=== PATIENT | female | born 1985 | race Caucasian/White ===

== ENCOUNTER → 2023-12-10 10:17 | Outpatient (REF) | payer OTHER, SELFPAY | LOC: HWRAD 10:17 | PROVIDERS: ATTENDING PHYSICIAN Nurse Practitioner Family; FAMILY PHYSICIAN Family Medicine | DX: Z34.90 Encounter for supervision of normal pregnancy, unspecified, unspecified trimester (principal) | CPT/HCPCS: 76801 ==

== ENCOUNTER → 2024-01-05 14:23 | Outpatient (REF) | payer OTHER, SELFPAY | LOC: PNTC 14:23 | PROVIDERS: ATTENDING PHYSICIAN Obstetrics & Gynecology | DX: O09.529 Supervision of elderly multigravida, unspecified trimester (principal) | CPT/HCPCS: 76805 ==

== ENCOUNTER → 2024-02-02 09:34 | Outpatient (REF) | payer OTHER, SELFPAY | LOC: PNTC 09:34 | PROVIDERS: ATTENDING PHYSICIAN Obstetrics & Gynecology | DX: O09.529 Supervision of elderly multigravida, unspecified trimester (principal) | CPT/HCPCS: 76811 ==

== ENCOUNTER → 2024-03-01 16:21 | Outpatient (REF) | payer OTHER, SELFPAY | LOC: PNTC 16:21 | PROVIDERS: ATTENDING PHYSICIAN Obstetrics & Gynecology | DX: O09.529 Supervision of elderly multigravida, unspecified trimester (principal); O99.210 Obesity complicating pregnancy, unspecified trimester | CPT/HCPCS: 76816 ==

== ENCOUNTER → 2024-03-22 15:58 | Outpatient (REF) | payer OTHER, SELFPAY | LOC: PNTC 15:58 | PROVIDERS: ATTENDING PHYSICIAN Obstetrics & Gynecology | DX: O09.529 Supervision of elderly multigravida, unspecified trimester (principal); O99.210 Obesity complicating pregnancy, unspecified trimester | CPT/HCPCS: 76816 ==

== ENCOUNTER 2024-04-12 11:31 | Observation (INO) | payer OTHER, SELFPAY ==
[2024-04-12 11:42] VITALS: BP 102/67; BMI 33.1
[2024-04-12] MEDS: TYLENOL 1000 MG PO (12:19)
== END 2024-04-12 13:55 | disposition home or self-care (01) ==
LOC: LDRP 11:31
PROVIDERS: ADMITTING PHYSICIAN Obstetrics & Gynecology
DX: R51.9 Headache, unspecified (principal); R04.0 Epistaxis; O24.410 Gestational diabetes mellitus in pregnancy, diet controlled; Z3A.30 30 weeks gestation of pregnancy; O09.523 Supervision of elderly multigravida, third trimester; O99.283 Endocrine, nutritional and metabolic diseases complicating pregnancy, third trimester; E03.9 Hypothyroidism, unspecified; Z79.890 Hormone replacement therapy; Z28.310 Unvaccinated for COVID-19
CPT/HCPCS: 59025; G0378

== ENCOUNTER 2024-04-13 13:20 | Emergency (ER) | payer OTHER, SELFPAY ==
[2024-04-13 13:21] VITALS: BP 105/81
--- NOTE | 2024-04-13 13:48 | ED.GENMED ---
History of Present Illness
<Anuja Oliver PA-C - Last Filed: 04/13/24 18:30>
General
Chief Complaint: Nose Bleed
Source: patient
Exam Limitations: none
Time Seen by Provider: 04/13/24 13:33
Nursing documentation reviewed up to this point in time: agreed with
Travel History
Have you had any contact with someone who has COVID-19?: No
Do you have any symptoms of coronavirus? Fever > 100 degrees, chills, cough, shortness of breath, sore throat, loss of taste or smell, muscle aches, or headache?: No
History of Present Illness
History of Present Illness:
39-year-old female with a past medical history of gestational diabetes presenting emergency department today with concerns of nosebleeds. Patient is currently 3 weeks . Patient states that 3 days ago, she had an episode of nose bleeding at
night. She bled from both nares bilaterally. Patient states that this lasted a few minutes and quickly resolved. Patient states that she called her OB who evaluated her and advised to call should she have any other episodes. Patient had another
episode and so she called her OB and they sent her in and did a further workup, and checked heart tones but did not do lab work at this time. Patient yet another episode in her OB with her to report to emergency department to get blood work done.
Patient denies any history of hypertension during . Patient denies any headaches currently, any dizziness, any bleeding from any other sites, any hallucinations, any lightheadedness.
Past History
<Anuja Oliver PA-C - Last Filed: 04/13/24 18:30>
Past History
ED Past Medical History: None
ED Past Surgical History: None
Social History
Tobacco: Non-smoker
Alcohol: None
Drug: None
Personal: Single
Living: with family
Employment: Employed
Family History
Family History: Other (non contributory)
Review of Systems
<Anuja Oliver PA-C - Last Filed: 04/13/24 18:30>
Review of Systems
All Other Systems: ROS reviewed and negative except as documented in HPI and ROS
Phy Exam
<Anuja Oliver PA-C - Last Filed: 04/13/24 18:30>
Physical Exam
Physical Exam:
Vitals: Patient's vital signs are stable, patient is not hypertensive.
General: Patient is well appearing and in no acute distress; non-toxic
Skin: Warm and dry, no rashes or lesions
Head: Normocephalic, atraumatic
Eyes: Sclera non-icteric. EOMs intact. PERRLA.
Nose: Bilateral nares patent bilaterally, no septal hematoma
Mouth: No blood in posterior pharynx; dentition intact
Cardiac: Regular rate and rhythm, no murmur
Pulm: Normal respiratory effort, no wheezes, rales, rhonchi
Abdomen: Gravid uterus, heart tones fum476
Neuro: CN II-XII intact, no focal neurologic deficits.
Psychiatric: Appropriate mood and affect.
Course
<Anuja Oliver PA-C - Last Filed: 04/13/24 18:30>
Orders/Labs/Results
Orders:
Orders
04/13/24 14:32
Complete Blood Count/With Diff Urgent
Comprehensive Metabolic Panel Urgent
04/13/24 15:15
Heart Tones ONCE
Abnormal Lab Results
04/13/24
14:32
WBC 15.1 H 10^3/uL
(4.8-10.8)
RBC 3.52 L 10^6/uL
(4.20-5.40)
Hgb 11.5 L g/dL
(12.0-16.0)
Hct 32.2 L %
(37.0-47.0)
MCH 32.7 H pg
(27.0-31.0)
Abs Immat Gran (auto) 0.4 H 10^3/uL
(0-0.05)
Absolute Neuts (auto) 11.4 H 10^3/uL
(1.4-6.5)
Absolute Monos (auto) 0.9 H 10^3/uL
(0.1-0.6)
Immature Gran % 2.5 H %
(0-0.5)
Neutrophils % 75.4 H %
(42.2-75.2)
Lymphocytes % 14.2 L %
(20.5-51.1)
Chloride 108 H mmol/L
(98-107)
Carbon Dioxide 21 L mmol/L
(22-30)
Creatinine 0.5 L mg/dL
(0.6-1.0)
Total Protein 5.9 L g/dl
(6.3-8.2)
Albumin 3.3 L g/dl
(3.5-5.0)
04/13/24 14:32
04/13/24 14:32
Vital Signs
Initial and Last Documented VS:
Initial Vital Signs
Temp Pulse Resp BP Pulse Ox
97.8 F 85 20 105/81 98
04/13/24 13:21 04/13/24 13:21 04/13/24 13:21 04/13/24 13:21 04/13/24 13:21
Last Documented Vital Signs
Temp Pulse Resp BP Pulse Ox
97.8 F 78 18 107/65 98
04/13/24 13:21 04/13/24 15:57 04/13/24 15:57 04/13/24 15:57 04/13/24 15:57
<Keshav Gaitan, - Last Filed: 04/13/24 20:33>
Orders/Labs/Results
Orders:
Orders
04/13/24 14:32
Complete Blood Count/With Diff Urgent
Comprehensive Metabolic Panel Urgent
04/13/24 15:15
Heart Tones ONCE
Abnormal Lab Results
04/13/24
14:32
WBC 15.1 H 10^3/uL
(4.8-10.8)
RBC 3.52 L 10^6/uL
(4.20-5.40)
Hgb 11.5 L g/dL
(12.0-16.0)
Hct 32.2 L %
(37.0-47.0)
MCH 32.7 H pg
(27.0-31.0)
Abs Immat Gran (auto) 0.4 H 10^3/uL
(0-0.05)
Absolute Neuts (auto) 11.4 H 10^3/uL
(1.4-6.5)
Absolute Monos (auto) 0.9 H 10^3/uL
(0.1-0.6)
Immature Gran % 2.5 H %
(0-0.5)
Neutrophils % 75.4 H %
(42.2-75.2)
Lymphocytes % 14.2 L %
(20.5-51.1)
Chloride 108 H mmol/L
(98-107)
Carbon Dioxide 21 L mmol/L
(22-30)
Creatinine 0.5 L mg/dL
(0.6-1.0)
Total Protein 5.9 L g/dl
(6.3-8.2)
Albumin 3.3 L g/dl
(3.5-5.0)
04/13/24 14:32
04/13/24 14:32
Vital Signs
Initial and Last Documented VS:
Initial Vital Signs
Temp Pulse Resp BP Pulse Ox
97.8 F 85 20 105/81 98
04/13/24 13:21 04/13/24 13:21 04/13/24 13:21 04/13/24 13:21 04/13/24 13:21
Last Documented Vital Signs
Temp Pulse Resp BP Pulse Ox
97.8 F 78 18 107/65 98
04/13/24 13:21 04/13/24 15:57 04/13/24 15:57 04/13/24 15:57 04/13/24 15:57
<Anuja Oliver PA-C - Last Filed: 04/13/24 18:30>
MDM/Problems Addressed
Differential Diagnosis Includes:
ddx include uncomplicated anterior epistaxis, allergic rhinitis, rhinosinusitis of , HELLP syndrome
MDM/Problems Addressed:
Nose bleeding:
39-year-old female with a past medical history of gestational diabetes presenting emergency department today with concerns of nosebleeds. Patient is currently 3 weeks . Patient states that 3 days ago, she had an episode of nose bleeding at
night. Patient was sent here by her organic chemist for lab work. On exam, she is well-appearing, her vitals are stable she is not hypertensive. She has no active bleeding when I first saw her, no septal hematoma. No indication for nasal packing
this time. Patient states that her bleeding has been well-controlled with Vaseline at home. Considering patient has no other symptoms, no hypertension, no concern for help syndrome at this time. Patient stable to follow-up with her organic chemist
as needed.
<Anuja Oliver PA-C - Last Filed: 04/13/24 18:30>
*Pulse Oximetry
Patient hypoxic: no
*Critical Care Note
Total Time (30-74mins, 75-104mins- exclusive of procedures): Not Applicable
Data Reviewed
Review of Other/Old Records Reveals: Records (Reviewed ER physician documentation from 10/19/2023)
Source: patient and records
Prescriptions/Medications Considered But Not Given:
Considered nasal packing however patient only had some mild bleeding while here in the ER which quickly resolved
<Anuja Oliver PA-C - Last Filed: 04/13/24 18:30>
Patient Management
Escalation/DeEscalation of care consider admission/obs:
Admission not indicated, patient will follow up with her organic chemist as needed
ED Attending Note
<Anuja Oliver PA-C - Last Filed: 04/13/24 18:30>
-
Portions of this chart may have been created with voice recognition software.� Occasional wrong word or��sound alike� substitutions may have occurred due to the inherent limitations of voice recognition software.
<Keshav Gaitan DO - Last Filed: 04/13/24 20:33>
ED Attending Note
Patient seen and examined by attending physician: Yes
I performed the substantive portion of visit, reviewed & personally made and approve the management plan that is documented in note by myself or STANLEY.: Yes
ED Attending Note:
No current bleeding on my evaluation. Appears well. Platelets normal. Assessment and plan: Patient does not want cauterization or packing at this time. Counseled on ways to control bleeding at home but also advised saline nasal sprays,
humidifier use and Vaseline in the anterior portion of her nose. Patient agrees and will follow-up as an outpatient. Blood pressure and heart tones normal
Discharge Plan
Departure
Patient Disposition: Home (Routine Discharge)
Date of Disposition: 04/13/24
Time of Disposition: 16:11
Patient with high blood pressure during this ER visit?: No
Condition: Good
Discharge Problem:
Nasal bleeding
Instructions: Nosebleeds (DC)
Prescriptions:
No Action
epinephrine [EpiPen 2-Amilcar] 0.3 mg/0.3 mL auto-injector
0.3 mg IM ONCE PRN (Reason: anaphylaxis) Qty: 2 0RF
(DME) Contour Next Test Strips Strip
Qty: 240 0RF
Rx Instructions:
Pt Testing 4 times a day
(DME) lancets [Microlet Lancet] Misc
Qty: 240 0RF
Rx Instructions:
Pt testing 4 times a day
levothyroxine 50 mcg Tablet
50 mcg PO DAILY
aspirin 81 mg Tablet
81 mg PO DAILY
prenat.vits,mary jane,[id number] Tablet
1 tab PO DAILY
docosahexaenoic acid-epa Capsule
1 cap PO DAILY
Referrals:
NONE,* [Family Provider] -
Activity Restrictions/Additional Instructions:
Please follow-up with your organic chemist.
Please return emergency department should you experience persistent headaches, fevers or chills, chest pain, shortness of breath, nosebleeds that do not resolve, syncopal episodes, dizziness, lightheadedness, hallucinations, abdominal pain, vaginal
bleeding, changes in your vision.
Interventions
Interventions:
*Risk Screen - Suicide Last Done: 04/13/24 13:21
*General Assessment Last Done: 04/13/24 13:21
*Neglect/Abuse Screening Last Done: 04/13/24 13:21
ED- Fall Risk Assessment Last Done: 04/13/24 16:13
*ED COVID-19 Vaccine History Last Done: 04/13/24 16:13
*Nursing Disposition Last Done: 04/13/24 16:13
ED-EENT Assessment Last Done: 04/13/24 16:00
Discharge Date and Time
Discharge Date/Time: 04/13/24 16:14
Print Language: CZECH
[2024-04-13 14:39] LABS: % Basophils 0.3 % (0-2); % Eosinophils 1.9 % (0-6); % Immature Granulocytes 2.5 % (0-0.5); % Lymphocytes 14.2 % (20.5-51.1); % Monocytes 5.7 % (1.7-9.3); % Neutrophils 75.4 % (42.2-75.2); Absolute Basophils 0.1 10^3/uL (0-0.2); Absolute Eosinophils 0.3 10^3/uL (0-0.7); Absolute Immature Granulocytes 0.4 10^3/uL (0-0.05); Absolute Lymphocytes 2.1 10^3/uL (1.2-3.4); Absolute Monocytes 0.9 10^3/uL (0.1-0.6); Absolute Neutrophils 11.4 10^3/uL (1.4-6.5); Hematocrit 32.2 % (37.0-47.0); Hemoglobin 11.5 g/dL (12.0-16.0); Mean Corp Hgb Conc. 35.7 g/dL (33.0-37.0); Mean Corpuscular Hgb 32.7 pg (27.0-31.0); Mean Corpuscular Volume 91.5 fL (81.0-99.0); Mean Platelet Volume 9.1 fL (7.4-10.4); Nucleated Red Blood Cells % 0 %; Platelet Count 246 10^3/uL (130-400); Red Blood Cell Count 3.52 10^6/uL (4.20-5.40); Red Cell Dist. Width 13.3 % (11.5-14.5); White Blood Cell Count 15.1 10^3/uL (4.8-10.8)
[2024-04-13 14:59] LABS: ALT (SGPT) 16 U/L (0-35); AST (SGOT) 20 U/L (14-36); Albumin 3.3 g/dl (3.5-5.0); Alkaline Phosphatase 87 U/L (38-126); Blood Urea Nitrogen 11 mg/dl (7-17); Calcium 8.7 mg/dl (8.4-10.2); Carbon Dioxide 21 mmol/L (22-30); Chloride 108 mmol/L (98-107); Glucose 89 mg/dl (70-99); Potassium 4.1 mmol/L (3.5-5.1); Sodium 135 mmol/L (135-145); Total Bilirubin 0.3 mg/dl (0.2-1.3); Total Protein 5.9 g/dl (6.3-8.2); eGFR > 60.00
[2024-04-13 15:57] VITALS: BP 107/65
== END 2024-04-13 16:14 | disposition home or self-care (01) ==
LOC: EMR 13:20
PROVIDERS: Physician Assistant; EMERGENCY PHYSICIAN Emergency Medicine
DX: O99.891 Other specified diseases and conditions complicating pregnancy (principal); R04.0 Epistaxis; Z3A.01 Less than 8 weeks gestation of pregnancy
CPT/HCPCS: 99282; 80053; 85025

== ENCOUNTER → 2024-04-19 13:26 | Outpatient (REF) | payer OTHER, SELFPAY | LOC: PNTC 13:26 | PROVIDERS: ATTENDING PHYSICIAN Obstetrics & Gynecology | DX: O09.529 Supervision of elderly multigravida, unspecified trimester (principal); O99.210 Obesity complicating pregnancy, unspecified trimester | CPT/HCPCS: 76816 ==

== ENCOUNTER → 2024-05-12 16:27 | Outpatient (REF) | payer OTHER, SELFPAY | LOC: PNTC 16:27 | PROVIDERS: ATTENDING PHYSICIAN Obstetrics & Gynecology | DX: O09.529 Supervision of elderly multigravida, unspecified trimester (principal); O99.210 Obesity complicating pregnancy, unspecified trimester | CPT/HCPCS: 59025 ==

== ENCOUNTER → 2024-05-19 16:31 | Outpatient (REF) | payer OTHER, SELFPAY | LOC: PNTC 16:31 | PROVIDERS: ATTENDING PHYSICIAN Obstetrics & Gynecology | DX: O99.210 Obesity complicating pregnancy, unspecified trimester (principal); O09.519 Supervision of elderly primigravida, unspecified trimester | CPT/HCPCS: 76816 ==

== ENCOUNTER 2024-05-26 16:15 | Observation (INO) | payer OTHER, SELFPAY ==
[2024-05-26 16:37] VITALS: BP 121/75; BMI 33.9
[2024-05-26] MEDS: LR 1000 IV (17:04)
[2024-05-26 17:19] LABS: % Basophils 0.3 % (0-2); % Eosinophils 1.5 % (0-6); % Immature Granulocytes 1.7 % (0-0.5); % Lymphocytes 14.4 % (20.5-51.1); % Monocytes 5.3 % (1.7-9.3); % Neutrophils 76.8 % (42.2-75.2); Absolute Eosinophils 0.2 10^3/uL (0-0.7); Absolute Immature Granulocytes 0.2 10^3/uL (0-0.05); Absolute Monocytes 0.7 10^3/uL (0.1-0.6); Absolute Neutrophils 10.5 10^3/uL (1.4-6.5); Hemoglobin 12.7 g/dL (12.0-16.0); Mean Corp Hgb Conc. 35.3 g/dL (33.0-37.0); Mean Corpuscular Volume 93.5 fL (81.0-99.0); Mean Platelet Volume 9.6 fL (7.4-10.4); Nucleated Red Blood Cells % 0 %; Platelet Count 219 10^3/uL (130-400); Red Blood Cell Count 3.85 10^6/uL (4.20-5.40); Red Cell Dist. Width 13.7 % (11.5-14.5); White Blood Cell Count 13.7 10^3/uL (4.8-10.8)
== END 2024-05-26 20:20 | disposition home or self-care (01) ==
LOC: LDRP 16:15
PROVIDERS: ADMITTING PHYSICIAN Obstetrics & Gynecology
DX: O36.8330 Maternal care for abnormalities of the fetal heart rate or rhythm, third trimester, not applicable or unspecified (principal); Z3A.36 36 weeks gestation of pregnancy; O24.410 Gestational diabetes mellitus in pregnancy, diet controlled; O99.283 Endocrine, nutritional and metabolic diseases complicating pregnancy, third trimester; E03.9 Hypothyroidism, unspecified; O09.523 Supervision of elderly multigravida, third trimester; Z79.84 Long term (current) use of oral hypoglycemic drugs; Z79.890 Hormone replacement therapy; Z88.8 Allergy status to other drugs, medicaments and biological substances; Z91.018 Allergy to other foods
CPT/HCPCS: 59025; 76815; 85025; 86850; 86900; 86901; G0378

== ENCOUNTER → 2024-06-02 16:35 | Outpatient (REF) | payer OTHER, SELFPAY | LOC: PNTC 16:35 | PROVIDERS: ATTENDING PHYSICIAN Obstetrics & Gynecology | DX: O09.529 Supervision of elderly multigravida, unspecified trimester (principal); O99.210 Obesity complicating pregnancy, unspecified trimester | CPT/HCPCS: 59025 ==

== ENCOUNTER → 2024-06-09 16:30 | Outpatient (REF) | payer OTHER, SELFPAY | LOC: PNTC 16:30 | PROVIDERS: ATTENDING PHYSICIAN Obstetrics & Gynecology | DX: O99.210 Obesity complicating pregnancy, unspecified trimester (principal); O09.519 Supervision of elderly primigravida, unspecified trimester | CPT/HCPCS: 59025; 76815 ==

== ENCOUNTER 2024-06-10 21:51 | Inpatient (IN) | payer OTHER, SELFPAY ==
[2024-06-10 22:16] VITALS: BP 125/75; BMI 34.6
[2024-06-10] MEDS: BICITRA 30 ML PO (22:41)
[2024-06-10] MEDS: TYLENOL 1000 MG PO (22:41)
[2024-06-10 22:42] LABS: Hematocrit 34.9 % (37.0-47.0); Hemoglobin 12.5 g/dL (12.0-16.0); Mean Corp Hgb Conc. 35.8 g/dL (33.0-37.0); Mean Corpuscular Hgb 32.8 pg (27.0-31.0); Mean Corpuscular Volume 91.6 fL (81.0-99.0); Mean Platelet Volume 9.7 fL (7.4-10.4); Platelet Count 251 10^3/uL (130-400); Red Blood Cell Count 3.81 10^6/uL (4.20-5.40); Red Cell Dist. Width 14.1 % (11.5-14.5); White Blood Cell Count 14.5 10^3/uL (4.8-10.8)
[2024-06-10] MEDS: ANCEF 10 IV (22:42)
[2024-06-11] MEDS: ZOFRAN 4 MG IV (03:01)
[2024-06-11] MEDS: TORADOL 15 MG IV ×3 (06:08→18:26)
[2024-06-11] MEDS: SYNTHROID 50 MCG PO (06:08)
[2024-06-11 06:28] LABS: Hemoglobin 12.1 g/dL (12.0-16.0); Mean Corp Hgb Conc. 35.6 g/dL (33.0-37.0); Mean Corpuscular Hgb 32.5 pg (27.0-31.0); Mean Corpuscular Volume 91.4 fL (81.0-99.0); Mean Platelet Volume 9.8 fL (7.4-10.4); Platelet Count 254 10^3/uL (130-400); Red Blood Cell Count 3.72 10^6/uL (4.20-5.40); Red Cell Dist. Width 13.7 % (11.5-14.5); White Blood Cell Count 20.7 10^3/uL (4.8-10.8)
--- NOTE | 2024-06-11 07:37 | W.PN.ANS.POP ---
Anesthesia Post Operative
- Anesthesia Post Op Note
Vital Signs Stable-See Nursing Note: Yes
Airway Patent: Yes
Adequate Pain Control: Yes
Change in Mental Status: No
Current Postoperative Nausea & Vomiting: No
Anesthesia Complications: No
General Anesthetic Recall: No
Unplanned Admission: No
Post Op Hydration Adequate: Yes
[2024-06-11] MEDS: PRENATAL PLUS 1 TABLET PO (12:34)
[2024-06-11] MEDS: MYLICON 80 MG PO (18:26)
[2024-06-12] MEDS: TORADOL 15 MG IV (00:24)
[2024-06-12] MEDS: TYLENOL 650 MG PO ×4 (00:24→20:15)
[2024-06-12] MEDS: SYNTHROID 50 MCG PO (06:26)
[2024-06-12] MEDS: MOTRIN 600 MG PO ×3 (06:26→20:15)
[2024-06-12] MEDS: PRENATAL PLUS 1 TABLET PO (08:26)
[2024-06-12] MEDS: MYLICON 80 MG PO ×2 (13:21→20:15)
[2024-06-12] MEDS: SENOKOT-S 1 TABLET PO (14:37)
[2024-06-13] MEDS: TYLENOL 650 MG PO ×2 (04:22→10:28)
[2024-06-13] MEDS: MOTRIN 600 MG PO ×2 (04:22→10:29)
[2024-06-13] MEDS: SYNTHROID 50 MCG PO (06:40)
[2024-06-13] MEDS: PRENATAL PLUS 1 TABLET PO (10:29)
--- NOTE | 2024-06-13 11:03 | W.DS.TRANS ---
DC Summary - [place]
-
Discharge Instructions:
Discharge Diagnosis/Procedures delivered 38 wks, macrosomia
Diet Regular
Activity No strenuous activity
Driving Restrictions No driving for 2 weeks
Bathing Restrictions OK to Shower
Instructions:
Stand-Alone Forms:
Changes to Home Medications: No
Discharge Medications:
DC Medications w/original date entered in [facility]
epinephrine 0.3 mg/0.3 mL injection, auto-injector (EpiPen 2-Amilcar) 0.3 mg (0.3 mL) IM ONCE PRN anaphylaxis #2 ea 03/28/23
levothyroxine 50 mcg tablet 50 mcg PO DAILY Thyroid 04/12/24
prenat.vits,mary jane,[id number] 1 tab PO DAILY Supplement 04/12/24
acetaminophen 325 mg tablet 650 mg (2 x 325 mg) PO Q4HPRN PRN mild pain #0 tabs 06/13/24
ibuprofen 600 mg tablet 600 mg PO Q6HPRN PRN cramps #0 tabs 06/13/24
Home Medication Changes
Pending Results: No
Total time spent discharging patient (in min): 30
[2024-06-14 13:58] LABS: Syphilis/T. pallidum Ab Reflex Negative (Negative)
== END 2024-06-13 13:37 | disposition home or self-care (01) | DRG 788 ==
LOC: LDRP 21:51
PROVIDERS: ADMITTING PHYSICIAN Obstetrics & Gynecology; ATTENDING PHYSICIAN Obstetrics & Gynecology
PROC: 10D00Z1 Extraction of Products of Conception, Low, Open Approach (ICD-10-PCS; 2024-06-10)
DX: O36.63X0 Maternal care for excessive fetal growth, third trimester, not applicable or unspecified (principal); O24.425 Gestational diabetes mellitus in childbirth, controlled by oral hypoglycemic drugs; O99.214 Obesity complicating childbirth; O99.284 Endocrine, nutritional and metabolic diseases complicating childbirth; E03.9 Hypothyroidism, unspecified; O69.81X0 Labor and delivery complicated by cord around neck, without compression, not applicable or unspecified; O99.824 Streptococcus B carrier state complicating childbirth; Z37.0 Single live birth; Z3A.38 38 weeks gestation of pregnancy; Z79.84 Long term (current) use of oral hypoglycemic drugs; Z79.890 Hormone replacement therapy; Z88.8 Allergy status to other drugs, medicaments and biological substances
CPT/HCPCS: 88307; 85027; 86780; 86850; 86900; 86901

== ENCOUNTER 2024-06-14 21:33 | Emergency (ER) | payer OTHER, SELFPAY ==
[2024-06-14 21:43] VITALS: BP 140/74
[2024-06-14 23:12] LABS: % Basophils 0.5 % (0-2); % Eosinophils 3.2 % (0-6); % Immature Granulocytes 1.4 % (0-0.5); % Lymphocytes 23.7 % (20.5-51.1); % Monocytes 5.9 % (1.7-9.3); % Neutrophils 65.3 % (42.2-75.2); Absolute Basophils 0.1 10^3/uL (0-0.2); Absolute Eosinophils 0.3 10^3/uL (0-0.7); Absolute Immature Granulocytes 0.1 10^3/uL (0-0.05); Absolute Lymphocytes 2.5 10^3/uL (1.2-3.4); Absolute Monocytes 0.6 10^3/uL (0.1-0.6); Absolute Neutrophils 6.8 10^3/uL (1.4-6.5); Hematocrit 32.2 % (37.0-47.0); Hemoglobin 11.3 g/dL (12.0-16.0); Mean Corp Hgb Conc. 35.1 g/dL (33.0-37.0); Mean Corpuscular Hgb 32.6 pg (27.0-31.0); Mean Corpuscular Volume 92.8 fL (81.0-99.0); Mean Platelet Volume 9.2 fL (7.4-10.4); Nucleated Red Blood Cells % 0 %; Platelet Count 291 10^3/uL (130-400); Red Blood Cell Count 3.47 10^6/uL (4.20-5.40); Red Cell Dist. Width 13.9 % (11.5-14.5); White Blood Cell Count 10.3 10^3/uL (4.8-10.8)
[2024-06-14 23:21] LABS: INR 0.93; PT 12.3 Sec (11.4-14.6)
[2024-06-14 23:22] LABS: APTT 25.3 Sec (23.4-35.0)
--- NOTE | 2024-06-14 23:25 | ED.GENMED ---
History of Present Illness
<ABBY Kelley - Last Filed: 06/15/24 02:47>
General
Chief Complaint: Chest Pain
Source: patient
Exam Limitations: none
Time Seen by Provider: 06/14/24 22:37
History of Present Illness
History of Present Illness:
Pt is a 39 y/o female with PMHx of gestational diabetes presenting with 'chest flutters,' low HR, and chest tightness x11 hours. She states that she was sitting on the couch today and she began to feel 'chest flutters.' She states she then checked
her heart rate and it was 55. She states she began to get anxious and started feeling tightness in her chest. She states she is currently and her breasts constantly feel full and tight but this was more in her chest. She states it does
not radiate anywhere. She states her symptoms have been constant all day so she decided to come to the ED. She states she has not had any difficulty breathing until she got to the hospital but now she is very nervous so it feels like it is difficult
to breath. She denies any similar symptoms in the past. She is 4 days post from an uncomplicated . She denies any fevers, chills, nausea, vomiting, calf pain, edema.
Past History
<ABBY Kelley - Last Filed: 06/15/24 02:47>
Past History
ED Past Medical History: None
ED Past Surgical History: None
Social History
Tobacco: Non-smoker
Alcohol: None
Drug: None
Personal: Single
Living: with family
Employment: Employed
Family History
Family History: Other (non contributory)
Phy Exam
<ABBY Kelley - Last Filed: 06/15/24 02:47>
Physical Exam
Physical Exam:
GENERAL: Patient appears anxious and is crying throughout the exam.
EYE: pupils equal and reactive
Throat: Airway intact, no exudates
NECK: Supple, no significant adenopathy.
CARDIAC: Regular rate and rhythm .
LUNGS: Clear breath sounds bilaterally, no acute respiratory distress, no wheezes/rales/rhonchi
ABDOMEN: Well healing excision to the lower abdomen from . Soft, nondistended abdomen.
NEUROLOGICAL: Alert and oriented, no focal neuro deficits
SKIN: Warm and dry, skin intact.
MUSCULOSKELETAL: No edema, well perfused.
PSYCH: Normal and appropriate interaction.
Scores
<[facility]ait[facility] - Last Filed: 06/15/24 02:47>
Heart Score for Chest Pain Patients
STEMI patient?: No
History: Slightly or Non-Suspicious
ECG: Normal
Age: </= 45 years
Risk Factors: No Risk Factors
Troponin: </= Normal Limit
Heart Score for Chest Pain Patients: 0
Heart Score Risk: 2.5% MACE over next 6 weeks
Course
<Shyam Gaitan [facility] - Last Filed: 06/15/24 02:47>
Orders/Labs/Results
Orders:
Orders
06/14/24 21:35
EKG [Electrocardiogram (*1)] Urgent
Reason for Study: Chest Pain
EKG- Treatment ONCE
06/14/24 23:02
Complete Blood Count/With Diff Urgent
Comprehensive Metabolic Panel Urgent
HCG, Serum Qualitative Screen Urgent
Comment: ADD ON
Magnesium Urgent
NT-proBNP Urgent
PTT Urgent
Prothrombin Time Urgent
TSH Urgent
Troponin I Urgent
06/14/24 23:50
Add On- LAB Urgent
Tests Added?: serum hcg
06/15/24 00:30
CT Chest Pe Study Urgent
Reason For Exam: cp
Abnormal Lab Results
06/14/24
23:02
RBC 3.47 L 10^6/uL
(4.20-5.40)
Hgb 11.3 L g/dL
(12.0-16.0)
Hct 32.2 L %
(37.0-47.0)
MCH 32.6 H pg
(27.0-31.0)
Abs Immat Gran (auto) 0.1 H 10^3/uL
(0-0.05)
Absolute Neuts (auto) 6.8 H 10^3/uL
(1.4-6.5)
Immature Gran % 1.4 H %
(0-0.5)
Chloride 108 H mmol/L
(98-107)
Glucose 100 H mg/dl
(70-99)
AST 156 H U/L
(14-36)
ALT 129 H U/L
(0-35)
Total Protein 6.1 L g/dl
(6.3-8.2)
TSH 6.33 H uIU/ml
(0.47-4.68)
06/14/24 23:02
06/14/24 23:02
Vital Signs
Initial and Last Documented VS:
Initial Vital Signs
Temp Pulse Resp BP Pulse Ox
98.7 F 61 16 140/74 98
06/14/24 21:43 06/14/24 21:43 06/14/24 21:43 06/14/24 21:43 06/14/24 21:43
Last Documented Vital Signs
Temp Pulse Resp BP Pulse Ox
98.7 F 59 20 129/80 98
06/14/24 21:43 06/15/24 01:45 06/15/24 01:45 06/15/24 01:45 06/15/24 01:45
Lissethlt;Robbi Gamez DO - Last Filed: 06/15/24 01:42>
Orders/Labs/Results
Orders:
Orders
06/14/24 21:35
EKG [Electrocardiogram (*1)] Urgent
Reason for Study: Chest Pain
EKG- Treatment ONCE
06/14/24 23:02
Complete Blood Count/With Diff Urgent
Comprehensive Metabolic Panel Urgent
HCG, Serum Qualitative Screen Urgent
Comment: ADD ON
Magnesium Urgent
NT-proBNP Urgent
PTT Urgent
Prothrombin Time Urgent
TSH Urgent
Troponin I Urgent
06/14/24 23:50
Add On- LAB Urgent
Tests Added?: serum hcg
06/15/24 00:30
CT Chest Pe Study Urgent
Reason For Exam: cp
Abnormal Lab Results
06/14/24
23:02
RBC 3.47 L 10^6/uL
(4.20-5.40)
Hgb 11.3 L g/dL
(12.0-16.0)
Hct 32.2 L %
(37.0-47.0)
MCH 32.6 H pg
(27.0-31.0)
Abs Immat Gran (auto) 0.1 H 10^3/uL
(0-0.05)
Absolute Neuts (auto) 6.8 H 10^3/uL
(1.4-6.5)
Immature Gran % 1.4 H %
(0-0.5)
Chloride 108 H mmol/L
(98-107)
Glucose 100 H mg/dl
(70-99)
AST 156 H U/L
(14-36)
ALT 129 H U/L
(0-35)
Total Protein 6.1 L g/dl
(6.3-8.2)
TSH 6.33 H uIU/ml
(0.47-4.68)
06/14/24 23:02
06/14/24 23:02
Vital Signs
Initial and Last Documented VS:
Initial Vital Signs
Temp Pulse Resp BP Pulse Ox
98.7 F 61 16 140/74 98
06/14/24 21:43 06/14/24 21:43 06/14/24 21:43 06/14/24 21:43 06/14/24 21:43
Last Documented Vital Signs
Temp Pulse Resp BP Pulse Ox
98.7 F 59 20 129/80 98
06/14/24 21:43 06/15/24 01:45 06/15/24 01:45 06/15/24 01:45 06/15/24 01:45
<ABBY Kelley - Last Filed: 06/15/24 02:47>
MDM/Problems Addressed
Differential Diagnosis Includes:
Differential diagnosis includes but is not limited to CT, PE, arrhythmia, hyperthyroid, anxiety, panic attack
<ABBY Kelley - Last Filed: 06/15/24 02:47>
*Radiology
Radiology exam reviewed: radiology read reviewed
*Pulse Oximetry
Patient hypoxic: no
*EKG
Interpreted by ED Provider?: Yes
EKG Intrepretation Date: 06/14/24
Interpretation: normal
Comparison EKG: no changes
Heart Rate: 63
Rate: normal
Rhythm: sinus
[place]: normal axis
Interval: normal interval
QRS Pattern: normal QRS
Ischemia: no ischemia
*Fund Controller Interpretation
Rate: Fund Controller- N/A
*Critical Care Note
Total Time (30-74mins, 75-104mins- exclusive of procedures): Not Applicable
<Robbi Gamez DO - Last Filed: 06/15/24 01:42>
Data Reviewed
Review of Other/Old Records Reveals: Operative Reports
Source: patient and family
<ABBY Kelley - Last Filed: 06/15/24 02:47>
Update Note
Update Note:
Patients troponins are within normal limits. EKG is unremarkable. BNP is slightly elevated likely due to recent (Patient gave 06/10/24). CT chest abdomen shows no abnormalities. Patient's story and negative workup is consistent with
anxiety.
ED Attending Note
<ABBY Kelley - Last Filed: 06/15/24 02:47>
-
Portions of this chart may have been created with voice recognition software.� Occasional wrong word or��sound alike� substitutions may have occurred due to the inherent limitations of voice recognition software.
<Robbi Gamez DO - Last Filed: 06/15/24 01:42>
ED Attending Note
Patient seen and examined by attending physician: Yes
I performed the substantive portion of visit, reviewed & personally made and approve the management plan that is documented in note by myself or STANLEY.: Yes
ED Attending Note:
Pleasant 39-year-old female presents with substernal, nonradiating chest pain and palpitations that began around 12:30 PM this afternoon. Patient is day 4. She gave on Thursday evening via . Patient states that she was at
rest on the couch when she started to feel the symptoms. She checked her heart rate and noted that it was 55. She became concerned. She called her facepiece line supervisor who advised that she come into the emergency department for evaluation. Patient does
feel short of breath and very anxious. Patient denies any other symptoms. She is accompanied by a family member. Patient was seen in conjunction with the PA student. I have reviewed and agree with the history and treatment plan presented. On my
independent physical exam, patient is awake, alert, and oriented x3, tearful, anxious affect. Heart is regular rate and rhythm at times slightly bradycardic. Lungs are clear to auscultation bilaterally without wheezes rales or rhonchi. Skin is
warm and dry.
Differential: Anxiety, PE, pneumonia
CTA CHEST
IMPRESSION:
1. Moderate technical study, with motion degradation. No central or segmental pulmonary embolism. Enlarged main pulm artery measuring up to 3.7 cm, which can be seen in pulmonary arterial hypertension.
2. No thoracic aortic aneurysm or acute aortic dissection. Trace bilateral pleural effusions. Mild thickening of the airways.
Incidentals:
- No acute osseous abnormality.
- No acute abnormality within the visualized abdomen.
- No thoracic lymphadenopathy or suspicious lymph nodes.
Case finalized on Jun 15 2024 1:09AM ET
06/15/2024 0141 AM: Discussed CT scan findings with patient. She will follow-up with her family doctor regarding the pulmonary hypertension. Discussed TSH. Patient missed a dose of Synthroid today. She is regularly monitored for her
hypothyroidism.
Discharge Plan
Departure
Patient Disposition: Home (Routine Discharge)
Date of Disposition: 06/15/24
Time of Disposition: 01:39
Patient with high blood pressure during this ER visit?: Yes
Condition: Good
Covid-19: Not Applicable
Discharge Problem:
Anxiety, Hypothyroid, Chest pain
Instructions: Hypothyroidism (underactive thyroid), Anxiety, Adult ED, Chest Pain PCP Follow Up, BLOOD PRESSURE
Prescriptions:
No Action
epinephrine [EpiPen 2-Amilcar] 0.3 mg/0.3 mL auto-injector
0.3 mg IM ONCE PRN (Reason: anaphylaxis) Qty: 2 0RF
levothyroxine 50 mcg Tablet
50 mcg PO DAILY
prenat.vits,mary jane,[id number] Tablet
1 tab PO DAILY
acetaminophen 325 mg Tablet
650 mg PO Q4HPRN PRN (Reason: mild pain) Qty: 0 0RF
ibuprofen 600 mg Tablet
600 mg PO Q6HPRN PRN (Reason: cramps) Qty: 0 0RF
Referrals:
Travis Aviles MD [Family Provider] - Call in 1-3 days for appt
Activity Restrictions/Additional Instructions:
We received a copy of your CT scan. Please follow-up with your primary care provider for further evaluation of the pulmonary findings.
Please continue to take your levothyroxine as directed.
It was a pleasure meeting you and taking part in your care. We hope for your continued healing and wellness.
Please read discharge instructions in their entirety. However, they are for general education and may not describe your exact diagnosis at discharge. Information on your ER visit and medical conditions were discussed with you along with appropriate
follow up information...
If indicated, please take your medications as instructed and indicated on discharge paperwork.
Please schedule a follow up appointment as directed. Call to schedule an appointment
Please return to the emergency department with ANY change in, persisting, or worsening of symptoms. If any of your symptoms do not improve, or persist, or become more severe within 6-12 hours, please return to the emergency department for further
care.
Please return to the emergency department if you develop a headache, neck pain/stiffness, fever greater than 100.4F, chest pain, shortness of breath, persistent nausea, vomiting, slurred speech, difficulty walking, numbness/tingling, weakness, signs
of infection or any other symptoms that are worrisome to you.
If you have any questions or concerns please do not hesitate to call the Hospital at or E-mail me directly at [email or web address]
Interventions
Interventions:
*Risk Screen - Suicide Last Done: 06/15/24 00:01
*General Assessment Last Done: 06/15/24 00:01
*Neglect/Abuse Screening Last Done: 06/15/24 00:01
ED- Fall Risk Assessment Last Done: 06/15/24 00:01
*ED COVID-19 Vaccine History Last Done: 06/15/24 00:01
*Nursing Disposition Last Done: 06/15/24 02:01
ED- Cardiac Assessment Last Done: 06/15/24 00:46
Discharge Date and Time
Discharge Date/Time: 06/15/24 02:03
Print Language: MALTESE
[2024-06-14 23:37] LABS: NT-proBNP 394 pg/ml; Troponin I < 0.012 ng/ml
[2024-06-14 23:38] LABS: ALT (SGPT) 129 U/L (0-35); AST (SGOT) 156 U/L (14-36); Albumin 3.6 g/dl (3.5-5.0); Alkaline Phosphatase 110 U/L (38-126); Blood Urea Nitrogen 17 mg/dl (7-17); Calcium 8.6 mg/dl (8.4-10.2); Carbon Dioxide 23 mmol/L (22-30); Chloride 108 mmol/L (98-107); Glucose 100 mg/dl (70-99); Potassium 4.3 mmol/L (3.5-5.1); Sodium 136 mmol/L (135-145); Total Bilirubin 0.5 mg/dl (0.2-1.3); Total Protein 6.1 g/dl (6.3-8.2); eGFR > 60.00
[2024-06-15] VITALS: BP 125/76; BP 125/77
[2024-06-15 00:17] LABS: TSH 6.33 uIU/ml (0.47-4.68)
[2024-06-15 00:22] LABS: HCG, Serum Qualitative Screen Positive
[2024-06-15 01:45] VITALS: BP 129/80
== END 2024-06-15 02:03 | disposition home or self-care (01) ==
LOC: EMR 21:33
PROVIDERS: EMERGENCY PHYSICIAN Student in an Organized Health Care Education/Training Program; FAMILY PHYSICIAN Family Medicine
DX: O99.893 Other specified diseases and conditions complicating puerperium (principal); O99.285 Endocrine, nutritional and metabolic diseases complicating the puerperium; R06.02 Shortness of breath; R00.2 Palpitations; E03.9 Hypothyroidism, unspecified; F41.9 Anxiety disorder, unspecified; R07.9 Chest pain, unspecified; J90 Pleural effusion, not elsewhere classified; I49.8 Other specified cardiac arrhythmias; R03.0 Elevated blood-pressure reading, without diagnosis of hypertension; Z88.8 Allergy status to other drugs, medicaments and biological substances; Z91.018 Allergy to other foods
CPT/HCPCS: 99285; 71275; 80053; 83735; 83880; 84443; 84484; 84703; 85025; 85610; 85730; 93005; Q9967

== ENCOUNTER 2024-07-02 03:12 | Emergency (ER) | payer OTHER, SELFPAY ==
[2024-07-02 03:21] VITALS: BP 125/81
[2024-07-02 04:09] VITALS: BP 94/50; BMI 30.3
--- NOTE | 2024-07-02 04:46 | ED.GENMED ---
History of Present Illness
<Nyla Sheridan MD, Resident - Last Filed: 07/02/24 06:58>
General
Chief Complaint: Breathing Problem
Source: patient
Exam Limitations: none
Time Seen by Provider: 07/02/24 03:50
Nursing documentation reviewed up to this point in time: agreed with
History of Present Illness
History of Present Illness:
39 yr F with hx of gestational diabetes, hypothyroidism, status post section 06/10, who presented with cough, chest congestion, lightheadedness, dull headache, shortness of breath while lying down. She was seen at urgent care earlier in
the day and was told she had a viral URI. Home COVID test was negative. She reports rhinorrhea, and sharp chest pain with coughing and occasionally with deep breaths. Her son was recently sick. She has maintained adequate p.o. intake and denies
abdominal symptoms, or fever/chills/sweats. Pt is not currently nursing.
Of note, she was seen in the ED for shortness of breath 3 days post section with extensive workup including troponin, proBNP, and chest CT within normal limits.
Past History
<Nyla Sheridan MD, Resident - Last Filed: 07/02/24 06:58>
Past History
ED Past Medical History: Hypothyroidism and Other (Gestational diabetes)
ED Past Surgical History: and Orthopedic (R wrist cyst)
Social History
Tobacco: Non-smoker
Alcohol: None
Drug: None
Personal: Single
Living: with family
Employment: Employed
Family History
Family History: Other (non contributory)
Review of Systems
<Nyla Sheridan MD, Resident - Last Filed: 07/02/24 06:58>
Review of Systems
Allergies reviewed?: Yes
All Other Systems: ROS reviewed and negative except as documented in HPI and ROS
Phy Exam
<Nyla Sheridan MD, Resident - Last Filed: 07/02/24 06:58>
Physical Exam
Physical Exam:
General: Appears anxious. No acute distress
Heart: Regular rate and rhythm, no murmurs or rubs. No JVD, no lower extremity edema. No leg tenderness. Negative Homans
Lungs: Clear to auscultation bilaterally. No wheezing, rales or rhonchi no respiratory distress. Cough noted on exam
Abdomen: Soft, nontender, nondistended, no rebound or guarding, no CVA tenderness.
Scores
<Allyssa Wallace DO - Last Filed: 07/02/24 05:58>
Heart Failure Risk
Heart Failure Risk Score: Not Applicable
Course
<Nyla Sheridan MD, Resident - Last Filed: 07/02/24 06:58>
Orders/Labs/Results
Orders:
Orders
07/02/24 04:44
Ipratropium/Albuterol Sulfate [Duoneb] 3 ml INH R NOW STA
Vital Signs
Initial and Last Documented VS:
Initial Vital Signs
Temp Pulse Resp BP Pulse Ox
98.2 F 70 16 125/81 99
07/02/24 03:21 07/02/24 03:21 07/02/24 03:21 07/02/24 03:21 07/02/24 03:21
Last Documented Vital Signs
Temp Pulse Resp BP Pulse Ox
98.2 F 83 22 130/80 99
07/02/24 03:21 07/02/24 05:15 07/02/24 05:15 07/02/24 05:01 07/02/24 05:15
<Allyssa Wallace DO - Last Filed: 07/02/24 05:58>
Orders/Labs/Results
Orders:
Orders
07/02/24 04:44
Ipratropium/Albuterol Sulfate [Duoneb] 3 ml INH R NOW STA
Vital Signs
Initial and Last Documented VS:
Initial Vital Signs
Temp Pulse Resp BP Pulse Ox
98.2 F 70 16 125/81 99
07/02/24 03:21 07/02/24 03:21 07/02/24 03:21 07/02/24 03:21 07/02/24 03:21
Last Documented Vital Signs
Temp Pulse Resp BP Pulse Ox
98.2 F 83 22 130/80 99
07/02/24 03:21 07/02/24 05:15 07/02/24 05:15 07/02/24 05:01 07/02/24 05:15
<Nyla Sheridan MD, Resident - Last Filed: 07/02/24 06:58>
MDM/Problems Addressed
Differential Diagnosis Includes:
URI, peripartum cardiomyopathy, anxiety
MDM/Problems Addressed:
Respiratory distress noted, heart and lungs normal on physical exam. Reported rhinorrhea with symptoms. Son was also recently sick. Unlikely peripartum cardiomyopathy given normal heart and lung exam. Extensive workup 2 weeks ago showed normal
EKG, normal troponin and proBNP, normal CT chest. Bronchiolitic cough noted on physical exam. Likely viral URI. Will provide nebulizer treatment and reevaluate.
<Allyssa Wallace, - Last Filed: 07/02/24 05:58>
*Pulse Oximetry
Patient hypoxic: no
*Critical Care Note
Total Time (30-74mins, 75-104mins- exclusive of procedures): Not Applicable
ED Attending Note
<Nyla Sheridan MD, Resident - Last Filed: 07/02/24 06:58>
-
Portions of this chart may have been created with voice recognition software.� Occasional wrong word or��sound alike� substitutions may have occurred due to the inherent limitations of voice recognition software.
<Allyssa Wallace, DO - Last Filed: 07/02/24 05:58>
ED Attending Note
Patient seen and examined by attending physician: Yes
I performed the substantive portion of visit, reviewed & personally made and approve the management plan that is documented in note by myself or STANLEY.: Yes
ED Attending Note:
This is a 39-year-old woman who is status post June 11 presents with complaints of cough, chest tightness with cough, nasal congestion that began yesterday. Evaluated by urgent care yesterday diagnosed with viral URI. No prescriptions
provided. She has not had a fever. She admits that her 14-year-old son had similar URI symptoms earlier in the week. Tonight she was concerned with some shortness of breath and chest tightness upon lying down.
No history of asthma nor reactive airway disease. Non-smoker.
Home COVID testing has been negative yesterday.
She is no longer nursing her infant.
She was evaluated in this ED June 14 with complaints of chest pain, shortness of breath. Extensive evaluation including CT of the chest/PE study was negative. BNP within normal limits. Troponin was negative. TSH minimally elevated at 6.33.
GENERAL: 39-year-old woman appears her stated age, awake and alert, appears in no acute distress. Mildly nasal, stuffy voice is noted with frequent hacking dry somewhat bronchiolitic cough is noted. Able to speak in full sentences. No respiratory
distress. Afebrile. Pulse ox 100% on room air.
EYE: pupils equal and reactive. anicteric
NECK: Supple, nontender, no meningismus, no significant adenopathy. No JVD.
ENT: posterior pharynx is without injection, mild clear postnasal drip is noted, oral mucosa is moist. TM clear b/l, nares have mildly boggy turbinates with scant clear rhinorrhea.
CARDIAC: Regular rate and rhythm. no murmur. No rub.
LUNGS: Clear breath sounds bilaterally, no acute respiratory distress, frequent nonproductive bronchiolitic type cough is noted.
ABDOMEN: Soft, nondistended, without focal tenderness, normoactive BS.
NEUROLOGICAL: Alert and oriented x3, no focal neuro deficits. Gait is luis and steady.
SKIN: Warm and dry, normal color, skin intact. No rash.
MUSCULOSKELETAL: No C/C/E. peripheral pulses are full and equal b/l. No palpable tenderness.
PSYCH: Mildly anxious.
History and exam most consistent with URI, bronchitis. I suspect viral in nature.
Overall nontoxic in appearance, afebrile.
Will trial DuoNeb nebulizer for bronchiolitic type cough.
No indication for laboratory studies nor imaging.
07/02/2024 0545 AM
Patient feeling improved after nebulizer treatment. Marked improvement/near resolution of cough. Lungs remain clear to auscultation. Respirations are easy nonlabored.
I suspect viral URI, no indication for antibiotic and again no indication for imaging.
Recommend supportive measures, staying well-hydrated, humidifier or vaporizer at nighttime. Elevating head of the bed at nighttime.
Tylenol versus ibuprofen as needed for discomfort, fever.
Will add albuterol inhaler for as needed cough.
Prompt follow-up with PCP for recheck.
Discharge Plan
Departure
Patient Disposition: Home (Routine Discharge)
Date of Disposition: 07/02/24
Time of Disposition: 05:47
Patient with high blood pressure during this ER visit?: No
Condition: Good
Discharge Problem:
Acute bronchitis, Acute URI
Instructions: Acute Bronchitis, Adult (DC)
Prescriptions:
New
albuterol sulfate 90 mcg/actuation aerosol powdr breath activated
2 inh inhalation Q6H PRN (Reason: shortness of breath or wheezing) Qty: 1 0RF
No Action
epinephrine [EpiPen 2-Amilcar] 0.3 mg/0.3 mL auto-injector
0.3 mg IM ONCE PRN (Reason: anaphylaxis) Qty: 2 0RF
levothyroxine 50 mcg Tablet
50 mcg PO DAILY
prenat.vits,mary jane,[id number]-emiq-uionz Tablet
1 tab PO DAILY
acetaminophen 325 mg Tablet
650 mg PO Q4HPRN PRN (Reason: mild pain) Qty: 0 0RF
ibuprofen 600 mg Tablet
600 mg PO Q6HPRN PRN (Reason: cramps) Qty: 0 0RF
Referrals:
Travis Aviles MD [Active] - Call in 1-3 days for appt
UNKNOWN - PT DOES,NOT KNOW [Family Provider] - Call in 1-3 days for appt
Interventions
Interventions:
*Risk Screen - Suicide Last Done: 07/02/24 03:21
*General Assessment Last Done: 07/02/24 06:00
*Neglect/Abuse Screening Last Done: 07/02/24 03:21
ED- Fall Risk Assessment Last Done: 07/02/24 04:30
*ED COVID-19 Vaccine History Last Done: 07/02/24 03:21
*Nursing Disposition Last Done: 07/02/24 06:00
ED- Cardiac Assessment Last Done: 07/02/24 04:30
ED- Pulmonary Assessment Last Done: 07/02/24 04:30
Discharge Date and Time
Discharge Date/Time: 07/02/24 06:02
Print Language: YORUBA
[2024-07-02] MEDS: DUONEB 3 ML INH (04:54)
[2024-07-02 05:01] VITALS: BP 130/80
== END 2024-07-02 06:02 | disposition home or self-care (01) ==
LOC: EMR 03:12
PROVIDERS: EMERGENCY PHYSICIAN Emergency Medicine
DX: O90.89 Other complications of the puerperium, not elsewhere classified (principal); J06.9 Acute upper respiratory infection, unspecified; J20.9 Acute bronchitis, unspecified; R42 Dizziness and giddiness; E03.9 Hypothyroidism, unspecified; Z88.8 Allergy status to other drugs, medicaments and biological substances; Z91.018 Allergy to other foods; G43.909 Migraine, unspecified, not intractable, without status migrainosus
CPT/HCPCS: 99283; 94640

== ENCOUNTER → 2024-07-11 12:47 | Outpatient (REF) | payer OTHER, SELFPAY | LOC: RCS 12:47 | PROVIDERS: ATTENDING PHYSICIAN Internal Medicine Cardiovascular Disease; FAMILY PHYSICIAN Family Medicine | DX: R06.09 Other forms of dyspnea (principal); R00.2 Palpitations; R07.89 Other chest pain | CPT/HCPCS: 93306 ==

== ENCOUNTER 2024-07-13 17:19 | Emergency (ER) | payer OTHER, SELFPAY ==
[2024-07-13 17:26] VITALS: BP 140/86
[2024-07-13 17:47] LABS: % Basophils 0.6 % (0-2); % Immature Granulocytes 0.1 % (0-0.5); % Lymphocytes 33.1 % (20.5-51.1); % Monocytes 5.2 % (1.7-9.3); Absolute Eosinophils 0.1 10^3/uL (0-0.7); Absolute Lymphocytes 2.3 10^3/uL (1.2-3.4); Absolute Monocytes 0.4 10^3/uL (0.1-0.6); Absolute Neutrophils 4.2 10^3/uL (1.4-6.5); Hematocrit 44.3 % (37.0-47.0); Hemoglobin 15.4 g/dL (12.0-16.0); Mean Corp Hgb Conc. 34.8 g/dL (33.0-37.0); Mean Corpuscular Hgb 32.8 pg (27.0-31.0); Mean Corpuscular Volume 94.5 fL (81.0-99.0); Mean Platelet Volume 8.7 fL (7.4-10.4); Nucleated Red Blood Cells % 0 %; Platelet Count 277 10^3/uL (130-400); Red Blood Cell Count 4.69 10^6/uL (4.20-5.40); Red Cell Dist. Width 11.9 % (11.5-14.5); White Blood Cell Count 7.1 10^3/uL (4.8-10.8)
[2024-07-13 18:12] LABS: NT-proBNP < 20.0 pg/ml; Troponin I < 0.012 ng/ml
[2024-07-13 18:20] VITALS: BP 119/81
[2024-07-13 18:24] LABS: ALT (SGPT) 30 U/L (0-35); AST (SGOT) 31 U/L (14-36); Albumin 4.9 g/dl (3.5-5.0); Alkaline Phosphatase 84 U/L (38-126); Blood Urea Nitrogen 20 mg/dl (7-17); Calcium 9.5 mg/dl (8.4-10.2); Carbon Dioxide 26 mmol/L (22-30); Chloride 99 mmol/L (98-107); Glucose 95 mg/dl (70-99); Potassium 4.4 mmol/L (3.5-5.1); Sodium 138 mmol/L (135-145); Total Bilirubin 0.7 mg/dl (0.2-1.3); Total Protein 7.5 g/dl (6.3-8.2); eGFR > 60.00
[2024-07-13 19:00] VITALS: BP 117/68
[2024-07-13 19:48] LABS: D-Dimer 0.39 ug/mlFEU (0.00-0.50)
[2024-07-13 20:00] VITALS: BP 102/72
[2024-07-13] MEDS: DECADRON 10 MG PO (20:14)
--- NOTE | 2024-07-13 22:26 | ED.GENMED ---
History of Present Illness
General
Chief Complaint: Chest Pain
Source: patient
Exam Limitations: none
Time Seen by Provider: 07/13/24 18:51
Nursing documentation reviewed up to this point in time: agreed with
History of Present Illness
History of Present Illness:
Patient states she had a Csection on 06/10. Reports SOB since delivery. She has been evaluated in ED 2x prior, treated for anxiety and bronchitis. Statess she was evaluated by cardiology. Had normal echo. Holter monitor was ordered and she will
place tonight after discharge. She is also scheduled for pulmonary function test on 07/26. To ED tonight with concerns that BELLO persists,. No fever/chills. Dry cough. Chest tightness but no chest pain. Brought self to ED>
Past History
Past History
ED Past Medical History: Hypothyroidism and Other (Gestational diabetes)
ED Past Surgical History: and Orthopedic (R wrist cyst)
Social History
Tobacco: Non-smoker
Alcohol: None
Drug: None
Personal: Single
Living: with family
Employment: Employed
Family History
Family History: Other (non contributory)
Review of Systems
Review of Systems
Allergies reviewed?: Yes
All Other Systems: ROS reviewed and negative except as documented in HPI and ROS
Constitutional: Reports no symptoms
EENT: Reports no symptoms
Respiratory: Reports trouble breathing
Cardiac: Reports no symptoms
ABD/GI: Reports no symptoms
: Reports no symptoms
Musculoskeletal: Reports no symptoms
Skin: Reports no symptoms
Neurological: Reports no symptoms
Psychiatric: Reports no symptoms
Phy Exam
General Physical Exam
General Presentation: well appearing and no apparent distress
General Skin: warm and dry
General Habitus: normal
General Mental: alert
Cardiovascular Exam
Cardiovascular Exam: regular rate/rhythm and no edema
Pulmonary Exam
Pulmonary Exam: lungs clear and no respiratory distress
Gastrointestinal Exam
Gastrointestinal Exam: normal bowel sounds, non tender and soft
Musculoskeletal Exam
Musculoskeletal Exam: full ROM and neuro vasc intact
Skin Exam
Skin Exam: normal color, warm/dry and no rash
Psychiatric Exam
Psychiatric Exam: normal mood/affect
Scores
Heart Score for Chest Pain Patients
STEMI patient?: Not applicable
Course
Orders/Labs/Results
Orders:
Orders
07/13/24 17:20
EKG [Electrocardiogram (*1)] Urgent
Reason for Study: Chest Pain
EKG- Treatment ONCE
07/13/24 17:32
CR Chest - 2 Views Urgent
Comment:
Reason For Exam: SOB/cough
07/13/24 17:40
Complete Blood Count/With Diff Urgent
Comprehensive Metabolic Panel Urgent
NT-proBNP Urgent
Troponin I Urgent
07/13/24 19:27
D-Dimer Urgent
07/13/24 19:59
Dexamethasone Pf [Decadron] 10 mg PO NOW STA
Abnormal Lab Results
07/13/24
17:40
MCH 32.8 H pg
(27.0-31.0)
BUN 20 H mg/dl
(7-17)
07/13/24 17:40
07/13/24 17:40
Vital Signs
Initial and Last Documented VS:
Initial Vital Signs
Temp Pulse Resp BP Pulse Ox
98.3 F 79 20 140/86 98
07/13/24 17:26 07/13/24 17:26 07/13/24 17:26 07/13/24 17:26 07/13/24 17:26
Last Documented Vital Signs
Temp Pulse Resp BP Pulse Ox
98.3 F 68 19 102/72 99
07/13/24 17:26 07/13/24 20:15 07/13/24 20:15 07/13/24 20:00 07/13/24 20:15
*Radiology
Radiology exam reviewed: radiology read reviewed
*Pulse Oximetry
Patient hypoxic: no
*EKG
Interpretation: normal
Rate: normal
Rhythm: sinus
*Critical Care Note
Total Time (30-74mins, 75-104mins- exclusive of procedures): Not Applicable
Update Note
Update Note:
Labs, imaging reviewed with patient. No concerning findings on exam today. VSS, no hypoxemia. She is discharged home. Will follow up with PCP in AM. Given instructions on s/s to return to ED andshe is agreeable to plan.
ED Attending Note
-
Portions of this chart may have been created with voice recognition software.� Occasional wrong word or��sound alike� substitutions may have occurred due to the inherent limitations of voice recognition software.
Discharge Plan
Departure
Patient Disposition: Home (Routine Discharge)
Date of Disposition: 07/13/24
Time of Disposition: 20:00
Patient with high blood pressure during this ER visit?: No
Condition: Good
Covid-19: Not Applicable
Discharge Problem:
Chest tightness
Instructions: Shortness of Breath, Adult ED
Prescriptions:
No Action
epinephrine [EpiPen 2-Amilcar] 0.3 mg/0.3 mL auto-injector
0.3 mg IM ONCE PRN (Reason: anaphylaxis) Qty: 2 0RF
levothyroxine 50 mcg Tablet
50 mcg PO DAILY
prenat.vits,mary jane,lze-kpky-fqomy Tablet
1 tab PO DAILY
acetaminophen 325 mg Tablet
650 mg PO Q4HPRN PRN (Reason: mild pain) Qty: 0 0RF
ibuprofen 600 mg Tablet
600 mg PO Q6HPRN PRN (Reason: cramps) Qty: 0 0RF
albuterol sulfate 90 mcg/actuation aerosol powdr breath activated
2 inh inhalation Q6H PRN (Reason: shortness of breath or wheezing) Qty: 1 0RF
Referrals:
Travis Aviles MD [Family Provider] -
Interventions
Interventions:
*Risk Screen - Suicide Last Done: 07/13/24 17:26
*General Assessment Last Done: 07/13/24 17:26
*Neglect/Abuse Screening Last Done: 07/13/24 17:26
*Nursing Disposition Last Done: 07/13/24 20:29
ED- Cardiac Assessment Last Done: 07/13/24 18:21
Discharge Date and Time
Discharge Date/Time: 07/13/24 20:31
Print Language: UKRAINIAN
== END 2024-07-13 20:31 | disposition home or self-care (01) ==
LOC: EMR 17:19
PROVIDERS: Nurse Practitioner; EMERGENCY PHYSICIAN Emergency Medicine; FAMILY PHYSICIAN Family Medicine
DX: O90.89 Other complications of the puerperium, not elsewhere classified (principal); R07.89 Other chest pain; R06.02 Shortness of breath; R05.9 Cough, unspecified; E03.9 Hypothyroidism, unspecified; Z88.8 Allergy status to other drugs, medicaments and biological substances; Z91.018 Allergy to other foods
CPT/HCPCS: 99283; 71046; 80053; 83880; 84484; 85025; 85379; 93005

== ENCOUNTER → 2024-12-27 09:31 | Outpatient (REF) | payer OTHER, SELFPAY | LOC: RAD 09:31 | PROVIDERS: ATTENDING PHYSICIAN Physician Assistant | DX: E03.9 Hypothyroidism, unspecified (principal); R13.14 Dysphagia, pharyngoesophageal phase | CPT/HCPCS: 74246; 76536 ==

== ENCOUNTER 2025-04-07 12:33 | Emergency (ER) | payer OTHER, SELFPAY ==
[2025-04-07 12:44] VITALS: BP 124/75
[2025-04-07 13:18] LABS: % Basophils 0.6 % (0-2); % Eosinophils 0.8 % (0-6); % Monocytes 5.5 % (1.7-9.3); % Neutrophils 68.1 % (42.2-75.2); Absolute Eosinophils 0.1 10^3/uL (0-0.7); Absolute Lymphocytes 1.8 10^3/uL (1.2-3.4); Absolute Monocytes 0.4 10^3/uL (0.1-0.6); Absolute Neutrophils 4.8 10^3/uL (1.4-6.5); Hematocrit 42.2 % (37.0-47.0); Hemoglobin 14.8 g/dL (12.0-16.0); Mean Corp Hgb Conc. 35.1 g/dL (33.0-37.0); Mean Corpuscular Hgb 31.7 pg (27.0-31.0); Mean Corpuscular Volume 90.4 fL (81.0-99.0); Mean Platelet Volume 9.4 fL (7.4-10.4); Nucleated Red Blood Cells % 0 %; Platelet Count 243 10^3/uL (130-400); Red Blood Cell Count 4.67 10^6/uL (4.20-5.40); Red Cell Dist. Width 11.8 % (11.5-14.5); White Blood Cell Count 7.1 10^3/uL (4.8-10.8)
[2025-04-07 13:35] LABS: HCG, Serum Qualitative Screen Negative
[2025-04-07 13:46] LABS: ALT (SGPT) 14 U/L (0-35); AST (SGOT) 17 U/L (14-36); Albumin 4.8 g/dl (3.5-5.0); Alkaline Phosphatase 44 U/L (38-126); Blood Urea Nitrogen 19 mg/dl (7-17); Calcium 9.4 mg/dl (8.4-10.2); Carbon Dioxide 22 mmol/L (22-30); Chloride 109 mmol/L (98-107); Glucose 120 mg/dl (70-99); Potassium 4.2 mmol/L (3.5-5.1); Sodium 139 mmol/L (135-145); Total Bilirubin 0.9 mg/dl (0.2-1.3); Total Protein 7.6 g/dl (6.3-8.2); eGFR > 60.00
[2025-04-07 14:08] LABS: Troponin I < 0.012 ng/ml
--- NOTE | 2025-04-07 14:13 | ED.GENMED ---
History of Present Illness
General
Chief Complaint: Breathing Problem
Source: patient
Exam Limitations: none
Time Seen by Provider: 04/07/25 13:52
History of Present Illness
History of Present Illness:
40-year-old female presents with persistent difficulty taking her breath. She notes intermittent sharp discomfort to the right side of her chest. No fever or cough. No recent illness. 10 months ago she had a . She received her
menstrual cycle 3 weeks ago. No recent travel or surgery. No leg swelling or calf pain. She was sent in by the urgent care for further evaluation. She was here for similar symptoms. She had a CAT scan at that time which was negative for PE. No
hemoptysis currently. Good appetite. No other complaints
Past History
Past History
ED Past Medical History: Hypothyroidism and Other (Gestational diabetes)
ED Past Surgical History: and Orthopedic (R wrist cyst)
Social History
Tobacco: Non-smoker
Alcohol: None
Drug: None
Personal: Single
Living: with family
Employment: Employed
Family History
Family History: Other (non contributory)
Phy Exam
Physical Exam
Physical Exam:
General: Well-appearing female no acute respiratory distress HEENT normocephalic atraumatic
Heart: Regular rate and rhythm lungs: Clear no wheeze
Extremities: No cyanosis or edema
Skin: Warm no rash
Course
Orders/Labs/Results
Orders:
Orders
04/07/25 12:47
Electrocardiogram (*1) Urgent
Reason for Study: Chest Pain
EKG- Treatment ONCE
Test Result ONCE
04/07/25 13:06
Complete Blood Count/With Diff Urgent
Comprehensive Metabolic Panel Urgent
HCG, Serum Qualitative Screen Urgent
Comment: Notify provider if positive test present
Troponin I Urgent
04/07/25 14:16
D-Dimer Urgent
Abnormal Lab Results
04/07/25
13:06
MCH 31.7 H pg
(27.0-31.0)
Chloride 109 H mmol/L
(98-107)
BUN 19 H mg/dl
(7-17)
Glucose 120 H mg/dl
(70-99)
04/07/25 13:06
04/07/25 13:06
Vital Signs
Initial and Last Documented VS:
Initial Vital Signs
Temp Pulse Resp BP Pulse Ox
98 F 83 16 124/75 98
04/07/25 12:44 04/07/25 12:44 04/07/25 12:44 04/07/25 12:44 04/07/25 12:44
Last Documented Vital Signs
Temp Pulse Resp BP Pulse Ox
98 F 74 18 104/76 98
04/07/25 12:44 04/07/25 15:00 04/07/25 15:00 04/07/25 15:00 04/07/25 15:00
MDM/Problems Addressed
Differential Diagnosis Includes:
Patient notes difficulty breathing and occasional sharp pain to the right side of the chest. EKG shows sinus rhythm with rate of 68 no ischemic changes. No PE risk factors but consider PE as an item in the differential. She had an x-ray performed
at the urgent care which I will review. Check for anemia or electrolyte abnormality. Consider pleurisy as well. If D-dimer elevated will order CT of chest
*Critical Care Note
Total Time (30-74mins, 75-104mins- exclusive of procedures): Not Applicable
Update Note
Update Note:
D-dimer negative. I reviewed the x-ray from the urgent care that was performed earlier today this was negative. Vital signs remained stable. Lungs are clear patient may have musculoskeletal chest discomfort recommend ibuprofen. Stable for
discharge with follow-up with family doctor
ED Attending Note
-
Portions of this chart may have been created with voice recognition software.� Occasional wrong word or��sound alike� substitutions may have occurred due to the inherent limitations of voice recognition software.
Discharge Plan
Departure
Patient Disposition: Home (Routine Discharge)
Date of Disposition: 04/07/25
Time of Disposition: 15:08
Patient with high blood pressure during this ER visit?: No
Discharge Problem:
Chest pain
Instructions: Chest Pain (DC)
Prescriptions:
No Action
epinephrine [EpiPen 2-Amilcar] 0.3 mg/0.3 mL auto-injector
0.3 mg IM ONCE PRN (Reason: anaphylaxis) Qty: 2 0RF
levothyroxine 50 mcg Tablet
50 mcg PO DAILY
prenat.vits,mary jane,fwy-nkwi-txejz Tablet
1 tab PO DAILY
acetaminophen 325 mg Tablet
650 mg PO Q4HPRN PRN (Reason: mild pain) Qty: 0 0RF
ibuprofen 600 mg Tablet
600 mg PO Q6HPRN PRN (Reason: cramps) Qty: 0 0RF
albuterol sulfate 90 mcg/actuation aerosol powdr breath activated
2 inh inhalation Q6H PRN (Reason: shortness of breath or wheezing) Qty: 1 0RF
Referrals:
Olga Dick MD [Family Provider, Family Practice]
Activity Restrictions/Additional Instructions:
Use ibuprofen if needed for pain. Return here for increasing shortness of breath or discomfort. As discussed, the workup here is unrevealing. Please follow-up with your doctor
Interventions
Interventions:
*Risk Screen - Suicide Last Done: 04/07/25 12:44
*General Assessment Last Done: 04/07/25 14:18
*Neglect/Abuse Screening Last Done: 04/07/25 12:44
*ED- Fall Risk Assessment Last Done: 04/07/25 14:18
*ED COVID-19 Vaccine History Last Done: 04/07/25 14:18
ED- Cardiac Assessment Last Done: 04/07/25 14:39
ED- Pulmonary Assessment Last Done: 04/07/25 14:39
Discharge Date and Time
Print Language: ROMANSH
[2025-04-07 14:16] VITALS: BP 122/74
[2025-04-07 14:18] VITALS: BMI 27.4
--- NOTE | 2025-04-07 14:56 | EDRN ---
Updated patient on labs, aware that doctor will be in shortly to go over plan.
[2025-04-07 15:00] VITALS: BP 104/76
--- NOTE | 2025-04-07 15:04 | EDRN ---
Report to [facility]
== END 2025-04-07 15:19 | disposition home or self-care (01) ==
LOC: EMR 12:33
PROVIDERS: Emergency Medicine; Physician Assistant; EMERGENCY PHYSICIAN Emergency Medicine; FAMILY PHYSICIAN Family Medicine
DX: R07.89 Other chest pain (principal); E03.9 Hypothyroidism, unspecified
CPT/HCPCS: 99283; 80053; 84484; 84703; 85025; 85379; 93005